=== PATIENT | female | born 1975 | race Caucasian/White ===

== ENCOUNTER 2020-12-01 00:14 | Emergency (ER) | payer SELFPAY ==
[~2020-12-01] VITALS: Ht 152.4 cm; Wt 68.2 kg
[2020-12-01 00:35] VITALS: TEMP 98
[2020-12-01 02:38] VITALS: BP 132/70; PULSE 76
== END 2020-12-01 02:38 | disposition home or self-care (01) ==
LOC: COL.ER 00:14
DX: S62.612A Displaced fracture of proximal phalanx of right middle finger, initial encounter for closed fracture (principal); W23.1XXA Caught, crushed, jammed, or pinched between stationary objects, initial encounter

== ENCOUNTER → 2021-09-12 | Outpatient (CLI) | payer SELFPAY | LOC: COL.CARD 11:18 | DX: R00.0 Tachycardia, unspecified (principal); Z95.5 Presence of coronary angioplasty implant and graft ==